=== PATIENT | female | born 1950 | race Caucasian/White ===

== ENCOUNTER 2019-07-06 17:16 | Emergency (ER) | payer MEDICARE, OTHER ==
[~2019-07-06] VITALS: Ht 175.3 cm; Wt 99.3 kg
[2019-07-06 17:28] VITALS: BP 175/89
--- NOTE | 2019-07-06 17:56 | RAD ---
Indication: Fall and pain TECHNIQUE: 3 views of the left wrist COMPARISON: None FINDINGS: Minimally displaced fracture is seen of the diaphysis of the fourth metacarpal bone with no extension to the articular surface. Mild radiocarpal joint osteoarthritis. Punctate calcific density is seen adjacent to the base of the second metacarpal which may represent an an avulsion fracture. Clinically correlate with focal tenderness. IMPRESSION: As above. Electronically signed by: Josiah Ramos DO (07/06/2019 5:53 PM) [facility]
[2019-07-06] MEDS ORDERED: HYDR-3164 PO (18:48)
--- NOTE | 2019-07-06 18:49 | PHYS DOC ---
Past Medical History Past Medical History: Diabetes-Type I Past Surgical History: Appendectomy, Hysterectomy Alcohol Use: Occasionally Drug Use: None Adult General Chief Complaint Chief Complaint: WRIST PAIN HPI HPI Patient is a 69 year old female who presents to the ED today with 3 out of 10 left wrist pain that began this afternoon after she fell. Patient states she tripped on her sewing machine cord and fell. Denies any loss of consciousness. She reports she breast herself with her left wrist. Review of Systems Review of Systems Constitutional: Denies fever or chills [] Musculoskeletal: Reports left wrist pain Integument: Denies rash or skin lesions [] Neurologic: Denies headache, focal weakness or sensory changes [] All other systems were reviewed and found to be within normal limits, except as documented in this note. Physical Exam Physical Exam Constitutional: Well developed, well nourished, no acute distress, non-toxic appearance. [] Skin: Warm, dry, no erythema, no rash. [] Back: No tenderness, no CVA tenderness. [] Extremities: Left wrist with mild soft tissue swelling on the dorsal aspect, tenderness on the dorsal aspect of the left wrist, full range of motion to the left wrist and hand. Full range of motion to the left fingers. Adequate radial, medial, ulnar sensation to the left hand. +2 left radial pulse. Cap refill less than 2 seconds the left fingers. Neurologic: Alert and oriented X 3, normal motor function, normal sensory function, no focal deficits noted. [] Psychologic: Affect normal, judgement normal, mood normal. [] Current Patient Data Vital Signs Vital Signs Date Time Temp Pulse Resp B/P (MAP) Pulse Ox O2 Delivery O2 Flow Rate FiO2 07/06/19 17:28 98.1 89 16 175/89 (117) 98 Room Air 98.1 EKG EKG [] Radiology/Procedures Radiology/Procedures []PROCEDURE: WRIST 3V LEFT Indication: Fall and pain TECHNIQUE: 3 views of the left wrist COMPARISON: None FINDINGS: Minimally displaced fracture is seen of the diaphysis of the fourth metacarpal bone with no extension to the articular surface. Mild radiocarpal joint osteoarthritis. Punctate calcific density is seen adjacent to the base of the second metacarpal which may represent an an avulsion fracture. Clinically correlate with focal tenderness. IMPRESSION: As above. Electronically signed by: Josiah Ramos DO (07/06/2019 5:53 PM) [facility] DICTATED and SIGNED BY: JOSIAH RAMOS DO DATE: 07/06/19 2463 Course & Med Decision Making Course & Med Decision Making Pertinent Labs and Imaging studies reviewed. (See chart for details) This is a 69-year-old female patient presented to the ED today with left wrist pain status post falling this afternoon. Left wrist x-rays interpreted by radiologist were noted for-minimally displaced fracture is seen of the diaphysis of the fourth metacarpal bone with no extension to the articular surface. Also noted for punctate calcific density is seen adjacent to the base of the second metacarpal which may represent an an avulsion fracture. Clinically correlate with focal tenderness-patient has no tenderness to this region. Patient was placed in ulnar gutter splint by the fuel storage technician, neurovascular exam done by me is intact. Ice elevation encouraged. Instructed to follow-up with orthopedic doctor in the course of this week. Dragon Disclaimer Dragon Disclaimer This electronic medical record was generated, in whole or in part, using a voice recognition dictation system. Departure Departure Impression: Primary Impression: Fracture of metacarpal of left hand, closed Disposition: 01 HOME, SELF-CARE Condition: STABLE Referrals: BRINDA BELTRAN MD (PCP) SONIYA BELL MD call his offic tomorrow and set up a follow up appointment Patient Instructions: Hand Fracture, Metacarpals Additional Instructions: You were evaluated in the emergency room and noted to have left hand fx. Please call the Orthopedic doctor provided tomorrow and set up a follow-up appointment. Try to ice and elevate the extremity. Take the prescribed pain medicine as needed for severe pain. Scripts Hydrocodone/Apap 5-325 (NORCO 5-325 TABLET) 1 Each Tablet 1 TAB PO Q6HRS PRN for PAIN, #12 TAB Prov: SARAH KINSEY [employer] 07/06/19 Problem Qualifiers Primary Impression: Fracture of metacarpal of left hand, closed Encounter type: initial encounter Metacarpal bone: fourth Metacarpal location: shaft Fracture alignment: displaced Qualified Codes: S62.325A - Displaced fracture of shaft of fourth metacarpal bone, left hand, initial encounter for closed fracture SARAH KINSEY APRN Jul 06, 2019 18:49
== END 2019-07-06 19:40 | disposition home or self-care (01) ==
LOC: ER 17:16
DX: S62.325A Displaced fracture of shaft of fourth metacarpal bone, left hand, initial encounter for closed fracture (principal); E10.9 Type 1 diabetes mellitus without complications; Z90.710 Acquired absence of both cervix and uterus; Z90.89 Acquired absence of other organs; W01.0XXA Fall on same level from slipping, tripping and stumbling without subsequent striking against object, initial encounter; Y93.89 Activity, other specified; Y92.89 Other specified places as the place of occurrence of the external cause; Y99.8 Other external cause status
CPT/HCPCS: 29125; 73110; 99284-25